=== PATIENT | male | born 1990 | race Caucasian/White ===

== ENCOUNTER → 2017-02-12 | Outpatient (CLI) | payer OTHER ==
--- NOTE | 2017-02-13 09:03 | REP ---
MRI BRAIN WITH CONTRAST: 02/12/2017. CLINICAL HISTORY: Headaches. Recent noncontrast MRI raised question of cortical dysplasia in the right frontal region. COMPARISON: Noncontrast MRI brain 01/31/2017 at [facility]. TECHNIQUE: The patient received a bolus of 19 ml of ProHance. Axial, coronal and sagittal T1 images of the brain were then performed. FINDINGS: Lateral ventricles, third and fourth ventricle all normal in appearance. There is no atrophy. The garcia-white junction differentiation was grossly normal, these were T1 images. Basal ganglia symmetric. There is no gyriform enhancement, abnormal meningeal enhancement, enhancing mass or vascular anomaly. Orbits and contents symmetric and grossly intact. The visualized sinuses show minor ethmoid sinus mucosal thickening anteriorly. The visualized mastoids were intact. The corpus callosum, optic chiasm, pituitary are normal. There is no cerebellar tonsillar ectopia. IMPRESSION: 1. No abnormal enhancement in the brain, meninges or cortex. There is no vascular lesion. No visible enhancing mass. Specifically I cannot confirm cortical dysplasia on the basis of this examination. 2. Minor ethmoid sinus mucosal disease. No other finding. Signed by Steve Hendricks MD 02/13/2017 11:38 A
== END ==
LOC: M RAD 14:14
PROVIDERS: ATTEND Physician Assistant
DX: J01.20 Acute ethmoidal sinusitis, unspecified (principal); R51 Headache
CPT/HCPCS: 70552; A9576

== ENCOUNTER → 2017-02-13 | Outpatient (CLI) | payer OTHER ==
[2017-02-13 10:33] LABS: BASO % 0.2 % (0.0-1.0); EOS # 0.2 K/mm3 (0.0-0.50); EOS % 2.9 % (0.0-3.0); LARGE UNSTAINED CELL # 0.2 K/mm3 (0.0-0.4); LARGE UNSTAINED CELL % 4.2 % (0.0-4.0); LYMPH # 1.6 K/mm3 (1.5-6.5); LYMPH % 30.9 % (24.0-44.0); MEAN CORPUSCULAR HEMOGLOBIN 30.1 pg (27.0-33.0); MEAN CORPUSCULAR VOLUME 86.2 fl (80.0-96.0); MONO # 0.3 K/mm3 (0.0-0.8); MONO % 5.6 % (0.0-5.0); NEUTROPHILS % 56.1 % (36.0-66.0); PLATELET COUNT, AUTOMATED 227 k/mm3 (150-450); WHITE BLOOD COUNT 5.3 K/mm3 (4.0-10.0)
[2017-02-13 10:54] LABS: ALBUMIN/GLOBULIN RATIO 1.29 (1.00-1.93); ALKALINE PHOSPHATASE 53 U/L (45-117); ALT/SGPT 18 U/L (12-78); ANION GAP 5 MEQ/L (8-16); AST/SGOT 11 U/L (15-37); BILIRUBIN,TOTAL 0.6 MG/DL (0.2-1.0); BLOOD UREA NITROGEN 21 MG/DL (7-18); CALCIUM LEVEL 8.7 MG/DL (8.5-10.1); CARBON DIOXIDE LEVEL 29 MEQ/L (21-32); CHLORIDE LEVEL 105 MEQ/L (98-107); CREATININE FOR GFR 0.78 MG/DL (0.70-1.30); GLOMERULAR FILTRATION RATE > 60.0 (>60); GLUCOSE, FASTING 100 MG/DL (70-105); POTASSIUM SERUM 4.2 MEQ/L (3.5-5.1); SODIUM LEVEL 139 MEQ/L (136-145); TOTAL PROTEIN 7.1 GM/DL (6.4-8.2)
[2017-02-13 11:42] LABS: ERYTHROCYTE SEDIMENTATION RATE 3 mm/hr (0-15)
== END ==
LOC: M LAB 09:30
PROVIDERS: ATTEND Psychiatry & Neurology Neurology
DX: R51 Headache (principal)